=== PATIENT | female | born 1980 | race Caucasian/White ===

== ENCOUNTER 2016-05-26 10:05 | Emergency (ER) ==
[2016-05-26 10:22] VITALS: BP 107/71
[2016-05-26] MEDS ORDERED: MORPHINE IV ONE (10:28)
[2016-05-26] MEDS ORDERED: NS 1,000 ML IV ONE (10:28)
[2016-05-26] MEDS ORDERED: ZOFRAN IV ONE (10:28)
--- NOTE | 2016-05-26 10:34 | PROVIDER DOCUMENTATION ---
HPI-Abdominal Pain/GI Problem - General Source: patient - History of Present Illness-ABD Nature of Presenting Problems: patient is a 36 y/o F that presents with epigastric pain with n/v that began suddenly at work .denies fever/chills, diarrhea, or chest pain. Abdominal Pain Onset Location: reports: epigastric Pain Radiation: reports: no radiation Quality of Pain: reports: aching, cramping Severity in ED: reports: moderate Onset/Duration: reports: abrupt, just prior to arrival Timing: reports: still present Activities at Onset: reports: none Modifying Factors: improves with: nothing Associated Symptoms: reports: diaphoresis, nausea, vomiting. denies: back/neck pain, diarrhea, EENT symptoms, fever/chills, genitourinary problems Similar Symptoms Previously?: No Recently seen or treated by another doctor?: No <Myron Atkins - Last Filed: 05/26/16 11:55> <Mateo Fang - Last Filed: 05/26/16 12:23> - General Chief Complaint: Abdominal Pain Stated Complaint: N/V ABD PAIN Time Seen by Provider: 05/26/16 10:24 Allergies/Adverse Reactions: Patient Allergies Allergy/AdvReac Type Severity Reaction Status Date / Time No Known Allergies Allergy Verified 05/26/16 10:22 Home Medications: Home Medication List Medication Instructions Recorded Confirmed Last Taken Type Docusate Sodium [Dulcolax Stool 100 mg PO TID PRN PRN #10 capsule 05/26/16 Unknown Rx Softener] Esomeprazole [Nexium] 40 mg PO DAILY #30 capsule 05/26/16 Unknown Rx Phentermine HCl [Adipex-P] 1 tab PO DAILY 05/26/16 05/26/16 Unknown History Promethazine [Phenergan] 25 mg PO Q6H PRN PRN #20 tablet 05/26/16 Unknown Rx Review of Systems - Adult - REVIEW OF SYSTEMS - ADULT Constitutional: denies: chills, fever Eyes: reports: no symptoms reported Ears, Nose, Mouth & Throat: denies: ear pain, sinus problem, throat pain, throat swelling Cardiovascular: denies: chest pain, palpitations, syncope Respiratory: denies: cough, shortness of breath, wheezing Gastrointestinal: reports: abdominal pain, nausea, vomiting. denies: hematemesis, diarrhea Genitourinary: denies: dysuria, frequency, hematuria Musculoskeletal: reports: back pain. denies: joint pain, neck pain Integumentary: reports: no symptoms reported Neurological: reports: no symptoms reported Psychiatric: reports: no symptoms reported Endocrine: reports: no symptoms reported Hematologic/Lymphatic: reports: no symptoms reported Allergic/Immunologic: reports: no symptoms reported All Other Systems: Reviewed and Negative <Myron Atkins - Last Filed: 05/26/16 11:55> Past History - Adult - PAST MEDICAL HISTORY-ADULT Review of Records: reports: Old Records Reviewed, Nursing Assessment Review, Medications Reviewed - PRIOR SURGERIES/PROCEDURES Surgical/Procedure History: reports: none - IMMUNIZATION STATUS Childhood Immunizations: See Nurse Assessment Flu Vaccine: See Nurse Assessment - FAMILY HISTORY Family History: reviewed, not pertinent - SOCIAL HISTORY Smoking: non-smoker Living Situation: family <Myron Atkins - Last Filed: 05/26/16 11:55> Physical Exam-General - PHYSICAL EXAM-ADULT Initial Vital Signs Reviewed: Yes - CONSTITUTIONAL General Appearance: alert, no apparent distress - EYES Eyes: PERRL/EOMI, pink conjunctivae - HEAD, EARS, NOSE, MOUTH & THROAT HENMT: normocephalic/atraumatic, moist mucous membranes, normal ENT inspection - NECK Neck: full range of motion, normal inspection <Myron Atkins - Last Filed: 05/26/16 11:55> Progress - PLAN OF CARE/RESULTS Progress/Plan/Lab Results: Laboratory Tests 05/26/16 05/26/16 05/26/16 10:37 10:37 10:37 WBC 7.34 RBC 4.45 Hgb 13.4 Hct 39.3 MCV 88.3 MCH 30.1 MCHC 34.1 RDW Std Deviation 12.5 Plt Count 222 MPV 11.0 H Immature Gran % (Auto) 0.1 Neut % (Auto) 68.7 Lymph % (Auto) 25.1 [place] % (Auto) 5.3 Eos % (Auto) 0.5 Baso % (Auto) 0.3 Immature Gran # (Auto) 0.01 Neut # (Auto) 5.04 Lymph # (Auto) 1.84 [place] # (Auto) 0.39 Eos # (Auto) 0.04 Baso # (Auto) 0.02 Sodium 139 Potassium 3.4 L Chloride 100 Carbon Dioxide 25 Anion Gap 14 BUN 13 Creatinine 0.8 Estimated GFR/1.73 m2 > 60 BUN/Creatinine Ratio 16 Glucose 112 H Calculated Osmolality 278 Calcium 9.4 Total Bilirubin 0.50 AST 15 ALT 8 L Alkaline Phosphatase 78 Total Protein 7.1 Albumin 4.3 Globulin 3.0 Albumin/Globulin Ratio 2.0 Lipase 69 H Urine Source Urine Color Urine Clarity Urine pH Ur Specific [place] Urine Protein Urine Ketones Urine Blood Urine Nitrite Urine Bilirubin Urine Urobilinogen Urine Microscopic RBC Urine WBC Urine Microscopic WBC Ur Epithelial Cells Urine Bacteria Urine Glucose Plasma/Serum Ethyl Alc 05/26/16 10:50 WBC RBC Hgb Hct MCV MCH MCHC RDW Std Deviation Plt Count MPV Immature Gran % (Auto) Neut % (Auto) Lymph % (Auto) [place] % (Auto) Eos % (Auto) Baso % (Auto) Immature Gran # (Auto) Neut # (Auto) Lymph # (Auto) [place] # (Auto) Eos # (Auto) Baso # (Auto) Sodium Potassium Chloride Carbon Dioxide Anion Gap BUN Creatinine Estimated GFR/1.73 m2 BUN/Creatinine Ratio Glucose Calculated Osmolality Calcium Total Bilirubin AST ALT Alkaline Phosphatase Total Protein Albumin Globulin Albumin/Globulin Ratio Lipase Urine Source CLEAN CATCH Urine Color YELLOW Urine Clarity CLEAR Urine pH 5.0 Ur Specific [place] 1.025 Urine Protein TRACE A Urine Ketones NEGATIVE Urine Blood NEGATIVE Urine Nitrite NEGATIVE Urine Bilirubin NEGATIVE Urine Urobilinogen NORMAL Urine Microscopic RBC Not Reportable Urine WBC 1+ A Urine Microscopic WBC <10 Ur Epithelial Cells <10 Urine Bacteria 1+ Urine Glucose NEGATIVE Plasma/Serum Ethyl Alc Orders Category Date Time Status ED: Urine Bedside ORDERED Care 05/26/16 10:28 Active Saline Loc NOW Care 05/26/16 10:28 Active ABDOMEN/PELVIS W/CONTRAST [CT] Stat Exams 05/26/16 11:35 Taken ALCOHOL BLOOD Stat Lab 05/26/16 10:37 Completed CBC WITH DIFF [HEME] Stat Lab 05/26/16 10:37 Completed COMPREHENSIVE METABOLIC PANEL [CHEM] Stat Lab 05/26/16 10:37 Completed LIPASE [CHEM] Stat Lab 05/26/16 10:[address] W/POSS RFLX CULT [URINALYSIS] Stat Lab 05/26/16 10:50 Completed URINE CULTURE [RM] Routine Lab 05/26/16 11:17 Ordered 0.9% Sodium Chloride Inj [Ns] 1,000 ml Med 05/26/16 10:28 Discontinued IV 999 mls/hr Lido/Nielson Alk/Al&mg Hydrox [G.i. Cocktail] Med 05/26/16 12:21 Once 30 ml PO NOW ONE Morphine Med 05/26/16 10:28 Discontinued 4 mg IV NOW ONE Ondansetron [Zofran] Med 05/26/16 10:28 Discontinued 4 mg IV NOW ONE Vital Signs Temp Pulse Resp BP Pulse Ox 05/26/16 10:19 97.8 F 82 18 107/71 100 No Known Allergies Allergy (Verified 05/26/16 10:22) Phentermine HCl [Adipex-P] 1 tab PO DAILY 05/26/16 Laboratory 05/26/16 05/26/16 05/26/16 10:50 10:37 10:37 WBC 7.34 RBC 4.45 Hgb 13.4 Hct 39.3 MCV 88.3 MCH 30.1 MCHC 34.1 RDW Std Deviation 12.5 Plt Count 222 MPV 11.0 H Immature Gran % (Auto) 0.1 Neut % (Auto) 68.7 Lymph % (Auto) 25.1 [place] % (Auto) 5.3 Eos % (Auto) 0.5 Baso % (Auto) 0.3 Immature Gran # (Auto) 0.01 Neut # (Auto) 5.04 Lymph # (Auto) 1.84 [place] # (Auto) 0.39 Eos # (Auto) 0.04 Baso # (Auto) 0.02 Sodium Potassium Chloride Carbon Dioxide Anion Gap BUN Creatinine Estimated GFR/1.73 m2 BUN/Creatinine Ratio Glucose Calculated Osmolality Calcium Total Bilirubin AST ALT Alkaline Phosphatase Total Protein Albumin Globulin Albumin/Globulin Ratio Lipase Urine Source CLEAN CATCH Urine Color YELLOW Urine Clarity CLEAR Urine pH 5.0 Ur Specific [place] 1.025 Urine Protein TRACE A Urine Ketones NEGATIVE Urine Blood NEGATIVE Urine Nitrite NEGATIVE Urine Bilirubin NEGATIVE Urine Urobilinogen NORMAL Urine Microscopic RBC Not Reportable Urine WBC 1+ A Urine Microscopic WBC <10 Ur Epithelial Cells <10 Urine Bacteria 1+ Urine Glucose NEGATIVE Plasma/Serum Ethyl Alc 05/26/16 10:37 WBC RBC Hgb Hct MCV MCH MCHC RDW Std Deviation Plt Count MPV Immature Gran % (Auto) Neut % (Auto) Lymph % (Auto) [place] % (Auto) Eos % (Auto) Baso % (Auto) Immature Gran # (Auto) Neut # (Auto) Lymph # (Auto) [place] # (Auto) Eos # (Auto) Baso # (Auto) Sodium 139 Potassium 3.4 L Chloride 100 Carbon Dioxide 25 Anion Gap 14 BUN 13 Creatinine 0.8 Estimated GFR/1.73 m2 > 60 BUN/Creatinine Ratio 16 Glucose 112 H Calculated Osmolality 278 Calcium 9.4 Total Bilirubin 0.50 AST 15 ALT 8 L Alkaline Phosphatase 78 Total Protein 7.1 Albumin 4.3 Globulin 3.0 Albumin/Globulin Ratio 2.0 Lipase 69 H Urine Source Urine Color Urine Clarity Urine pH Ur Specific [place] Urine Protein Urine Ketones Urine Blood Urine Nitrite Urine Bilirubin Urine Urobilinogen Urine Microscopic RBC Urine WBC Urine Microscopic WBC Ur Epithelial Cells Urine Bacteria Urine Glucose Plasma/Serum Ethyl Alc Pt is feeling well. No episodes of vomiting in the ED. will d/c home. - CT/MRI 1 CT Study: Abdomen, Pelvis CT Results: constipation <Mateo Fangley - Last Filed: 05/26/16 12:23> Departure <Myron Atkins - Last Filed: 05/26/16 11:55> - Departure Time of Disposition Order: 12:22 Certified Medical Emergency: Emergent <Mateo Fangley - Last Filed: 05/26/16 12:23> - Departure DIAGNOSIS: Constipation Qualifiers: Constipation type: unspecified constipation type Qualified Code(s): K59.00 - Constipation, unspecified Nausea & vomiting Qualifiers: Vomiting type: unspecified Vomiting Intractability: non-intractable Qualified Code(s): R11.2 - Nausea with vomiting, unspecified Disposition: HOME 01 Condition: Good Additional Instructions: Take medication as prescribed. Eat a bland diet and drink plenty of water. Follow up with a GI physician for continued symptoms. ED Follow Up Instructions: You have been treated by a care provider in the Emergency Department. These instructions are being provided to you so you can have an understanding of how to care for yourself upon discharge. Upon discharge from the Emergency Department, you are responsible for making arrangements for follow-up care by a physician of your choice. Take all prescribed medications as directed. Return to the Emergency Department immediately for any new or worsening symptoms. You may call the Physician Referral phone number at [phone] to obtain a list of Physicians who are taking new patients. Prescriptions: Docusate Sodium [Dulcolax Stool Softener] 100 mg PO TID PRN PRN #10 capsule PRN Reason: Constipation Esomeprazole [Nexium] 40 mg PO DAILY #30 capsule Promethazine [Phenergan] 25 mg PO Q6H PRN PRN #20 tablet PRN Reason: Nausea Referrals: None,PCP [Primary Care Provider] - Alexandra Morales MD [STAFF PHYSICIAN] - Attestation - Scribe Verification/Attestation Scribe:: Myron Atkins Acting as Scribe for:: Mateo Fang (reinier) Scribe documention review:: This chart was documented by a scribe and accurately reflects the service the provider performed and the decisions made by the provider. - Physician/ VICTOR MANUEL Attestation Patient care was provided by Advanced Practice Provider:: Yes Advanced Practice Provider:: Mateo Fang Advanced Practice Provider documentation review:: The Mid-level provider documentation, treatment plan and medical decision making was reviewed by the physician who agrees with all treatment and medical decision making by the MLP. <Myron Atkins - Last Filed: 05/26/16 11:55> - Physician/ VICTOR MANUEL Attestation Patient care was provided by Advanced Practice Provider:: Yes Advanced Practice Provider:: Mateo Fang Advanced Practice Provider documentation review:: The Mid-level provider documentation, treatment plan and medical decision making was reviewed by the physician who agrees with all treatment and medical decision making by the MLP. <Mateo Fang - Last Filed: 05/26/16 12:23> Physician Attestation - Physician Attestation I, the provider, attest to the following statement:: Mateo Fang Physician documentation Attestation:: This documentation recorded by the scribe accurately reflects the service I personally performed and the decisions made by me. <Myron Atkins - Last Filed: 05/26/16 11:55>
[2016-05-26 10:55] LABS: MANUAL DIFF NEEDED? NO
[2016-05-26 10:57] LABS: BASO% 0.3 % (0.0-0.8); EOS# 0.04 X1000 (0.0-0.7); EOS% 0.5 % (0.0-10.0); HEMATOCRIT 39.3 % (37.0-47.0); HEMOGLOBIN 13.4 g/dL (12.0-16.0); IMM GRAN# 0.01 X1000 (0.0-0.04); IMM GRAN% 0.1 % (0.0-0.5); LYMPH# 1.84 X1000 (1.2-3.4); LYMPH% 25.1 % (20.5-51.1); MCH 30.1 PG (27-31); MCHC 34.1 g/dL (33-37); MCV 88.3 FL (81-99); MONO# 0.39 X1000 (0.11-0.59); MONO% 5.3 % (1.7-9.3); NEUT% 68.7 % (42.2-75.2); PLT 222 X1000 (130-400); RBC 4.45 XMIL (4.2-5.4)
[2016-05-26 11:06] LABS: URINE SOURCE CLEAN CATCH
[2016-05-26 11:10] LABS: BILIRUBIN URINE NEGATIVE (NEGATIVE); BLOOD URINE NEGATIVE (NEGATIVE); CLARITY CLEAR (CLEAR); COLOR YELLOW; GLUCOSE URINE NEGATIVE (NEGATIVE); LEUKOCYTES URINE 1+ (NEGATIVE); NITRITE URINE NEGATIVE (NEGATIVE); PROTEIN URINE TRACE mg/dL (NEGATIVE); SP GRAVITY URINE 1.025; UROBILINOGEN URINE NORMAL
[2016-05-26 11:15] LABS: AGAP 14; ALBUMIN 4.3 g/dL (3.5-5.0); ALKALINE PHOSPHATASE 78 U/L (32-104); BUN 13 mg/dL (8-22); CALCIUM 9.4 mg/dL (8.8-10.2); CHLORIDE 100 mmol/L (98-107); COSMO 278; GOT 15 U/L (10-30); GPT 8 U/L (10-36); LIPASE 69 U/L (13-60); POTASSIUM 3.4 mmol/L (3.5-5.1); SODIUM 139 mmol/L (136-145); TCO2 25 mmol/L (25-35); TOTAL PROTEIN 7.1 g/dL (6.3-8.3)
[2016-05-26 11:17] LABS: URINE CULTURE PL NEEDED? YES; URINE EPITHELIAL CELLS <10 /HPF (<10); URINE WBC <10 /HPF (<10)
[2016-05-26] MEDS ORDERED: G.I. COCKTAIL PO ONE (12:21)
--- NOTE | 2016-05-26 13:35 | Diag Imaging Result Document ---
PROCEDURE NAME: ABDOMEN/PELVIS W/CONTRAST - 05/26/2016 CT OF THE ABDOMEN WITH INTRAVENOUS CONTRAST: COMPARISON: There are no previous studies. FINDINGS: The visualized portion of the chest is unremarkable. The spleen, adrenal glands, and pancreas are within normal limits. The liver is unremarkable. There are no apparent gallstones. The kidneys are without evidence of hydronephrosis or mass. There is a tiny cyst in the lower pole of the right kidney. There is a fairly large amount of stool present in the left colon particularly in the area of the splenic flexure. The appendix is normal in appearance and the small bowel is not distended. CT OF THE PELVIS WITH INTRAVENOUS CONTRAST: FINDINGS: There is stool throughout the rectosigmoid colon. There are follicles in both ovaries. No significant free fluid is present. The regional skeleton appears to be intact. IMPRESSION: Constipation.
== END 2016-05-26 13:13 | disposition home or self-care (01) ==
LOC: P.ED 10:05
DX: K59.00 Constipation, unspecified (principal); R11.2 Nausea with vomiting, unspecified; R10.13 Epigastric pain; R61 Generalized hyperhidrosis; M54.9 Dorsalgia, unspecified; R10.816 Epigastric abdominal tenderness
CPT/HCPCS: 74177; 80053; 81001; 81025; 83690; 85025; 87088; 96361; 96374; 96375; G0480; J2270; J2405; J7030; Q9967; 80320